=== PATIENT | male | born 1975 | race Two or more races ===

== ENCOUNTER 2024-10-02 14:00 | Outpatient (RCR) | payer MEDICAID, SELFPAY ==
--- NOTE | 2024-09-25 14:30 | PT.ODAYNRPT ---
PT Outpatient Daily Note OP Daily Note Outpatient Physical Therapy Treatment Date: 09/25/24 Visit Reasons: Pain in Right shoulder Subjective: Pt reports R knee is hurting and stiff today. Pt shared he was doing some work around the yard today, R UE tremors are worse today. Objective: Please see flow sheet for ther ex list. Assessment: Pt c/o pain with AAROM activities, pt completed within tolerable range. R UE tremors present during todays PT session. Plan: Continue with POC. Length of Time (minutes) of Treatment: 30 Minutes Procedure Charges Therapeutic Exercise 30 minutes: Yes
--- NOTE | 2024-10-02 14:38 | PT.ODAYNRPT ---
PT Outpatient Daily Note OP Daily Note Outpatient Physical Therapy Treatment Date: 10/02/24 Visit Reasons: Pain in Right shoulder Subjective: Pt is sleeping about 4 hrs at a time up from 2 since starting therapy Objective: See F/S for therex Assessment: Some increased tightness after resisted ER with theraband today consistent with RC tendinopathy Plan: Reassess Length of Time (minutes) of Treatment: 30 Minutes Procedure Charges Therapeutic Exercise 30 minutes: Yes
== END 2024-10-19 23:59 | disposition home or self-care (01) ==
LOC: CPTX 14:00
PROVIDERS: PCP Nurse Practitioner Family; Referring Provider Nurse Practitioner Family; Visit Provider Nurse Practitioner Family
DX: M25.511 Pain in right shoulder (principal); I10 Essential (primary) hypertension
CPT/HCPCS: 97110

== ENCOUNTER → 2024-11-28 | Outpatient (CLI) | payer MEDICAID, SELFPAY ==
--- NOTE | 2024-11-28 16:00 | XR_ITS ---
MRI shoulder, right, without contrast. Date and time: November 28, 2024 1631 hours INDICATIONS: Onset right shoulder pain with lifting joint popping and stiffness joint clicking swelling beginning 2 years ago Technique: Multiple axial, sagittal and coronal sections of the shoulder have been obtained. Siemens high-resolution 1.5 Ritu MRI scanner is utilized. Axial fat-suppressed sections, TR 2350, TE 18 T2-weighted coronal fat-saturated images, TR 3500, TE 7100 T1-weighted coronal images, TR 500, TE 15 T2-weighted sagittal fat-saturated images, TR 3500, TE 57 T1-weighted sagittal sections, TR 504, TE 13. Findings: 20 mm full-thickness rotator cuff tear Subscapularis insertion is intact. Subscapularis bursa is not seen. Long head of the biceps is in the bicipital groove. No definite tear of the biceps superior labral anchor is seen. Retraction of the musculotendinous junction of the rotator cuff is evident. Tendinosis pattern is significant. Distance between the acromium and humeral head is 7 mm Atrophy of the supraspinatus muscle is moderate. Atrophy of the infraspinatus muscle is mild. Sagittal sections demonstrate a horizontal acromion. Acromioclavicular joint demonstrates mild osteoarthritis . Osacromiale is not identified. Fraying and irregularity anterior superior posterior labral margins. Bony glenoid fossa on the sagittal sections does not demonstrate osseous defect. Occult fracture or area of avascular necrosis is not seen. Acromioclavicular joint separation is not visible. Defect in the posterolateral margin of the humeral head is not seen Impression: 20 mm full-thickness rotator cuff tear Fraying and irregularity anterior superior posterior labral margins
== END | disposition home or self-care (01) ==
PROVIDERS: PCP Nurse Practitioner Family; Referring Provider Nurse Practitioner Family; Visit Provider Nurse Practitioner Family
DX: M75.101 Unspecified rotator cuff tear or rupture of right shoulder, not specified as traumatic (principal); M25.811 Other specified joint disorders, right shoulder
CPT/HCPCS: 73221

== ENCOUNTER 2024-12-07 22:53 | Emergency (ER) | payer MEDICAID, SELFPAY ==
[2024-12-07 22:54] VITALS: BMI 29.5
[2024-12-07 23:30] VITALS: BP 154/95; PULSE 89; RESP 20; TEMP 36.6; O2SAT 95
--- NOTE | 2024-12-07 23:50 | PD.EDANX ---
ED Anxiety RME/HPI General Chief Complaint: Anxiety Stated Complaint: ANXIOUS Time Seen by Provider: 12/07/24 22:58 Arrival date/time: 12/07/24 22:53 49 year old male present to emergency room with c/o of anxiety attack today. pt report pcp start on paxil recent and report sx has not improved. pt would like to continue taking hydroxyzine that was prescribed at [facility] for his anxiety/panic attacks. SEVERITY: Symptoms are described as being severe with limitations on activities of daily living CONTEXT: The patient is unable to identify any inciting events. DURATION/TIMING: The symptoms started approximately [one day] ago and have been constant since and have been progressive getting worse. ASSOCIATED SYMPTOMS: The patient is unable to identify any other associated symptoms. MODIFYING FACTORS: The patient is unable to identify any alleviating or aggravating symptoms. PERTINENT ROS: no fevers, no cough, no pleuritic pain, , no chest pain/shortness of breath no nausea,vomiting, diarrhea, no dizziness/headache no rash no loc/syncope episode denies si, hallucination or homicidal thoughts. REVIEW OF SYSTEMS: See History of Present Illness - with the exception of those mentioned in the history of present illness, all other systems reviewed and reported as negative GENERAL: In general the patient is awake, interactive, in an emergency department gurney. HEAD/EYES/EARS/NOSE/THROAT: normo-cephalic, atraumatic, mucus membranes are moist, anicteric, palpebral conjunctiva is pink, trachea is midline. CARDIOVASCULAR: regular rate and regular rhythm, no murmurs, heart sounds are not distant, strong pulses in all four extremities that are equal and symmetric bilateral upper and lower extremities, normal capillary refill. CHEST/PULMONARY: normal chest rise and fall, good air movement, clear to auscultation bilaterally, normal inspiratory to expiratory ratios without evidence of respiratory distress. NECK: No midline/Paraspinal tenderness, no step off ROM/Strenght intact No Kernig and bruzinski sign. No trauma ABDOMEN: soft, not tender, no masses appreciated BACK: normal range of motion without pain. NEUROLOGICAL: cranio-facial features are symmetric, moves all four extremities equally without obvious limitations or weakness. EXTREMITY: no tenderness to palpation over the long bones or large joints of the bilateral upper and lower extremities, no joint swelling, no joint erythema, no signs of trauma, no unilateral leg swelling and no peripheral edema. SKIN: warm, dry, well-perfused, no jaundice, no rash, no telangiectasias or petechia. PSYCH: calm, cooperative, no evidence of psychosis or agitation Related Data Home Medications ?Medication ?Instructions ?Recorded ?Confirmed carbidopa 10 mg-levodopa 100 mg 1 tab PO QDAY 04/07/24 04/07/24 tablet clonazepam 0.5 mg tablet 0.5 mg PO BID 04/07/24 04/07/24 cyanocobalamin (vitamin B-12) 1,000 mcg PO QDAY 04/07/24 04/07/24 1,000 mcg tablet lisinopril 30 mg tablet 30 mg PO QDAY 04/07/24 04/07/24 pyridoxine (vitamin B6) 50 mg 50 mg PO QDAY 04/07/24 04/07/24 tablet Previous Rx's ?Medication ?Instructions ?Recorded tamsulosin 0.4 mg capsule (Flomax) 0.4 mg PO QDAY #30 caps 04/07/24 hydroxyzine HCl 50 mg tablet 50 mg PO Q6H 30 days #60 tabs 12/07/24 Allergies Allergy/AdvReac Type Severity Reaction Status Date / Time Penicillins Allergy Severe Rash Verified 12/07/24 22:53 Course Course Course Narrative: This patient presents with symptoms consistent with acute anxiety reaction / panic attack. Low suspicion for acute cardiopulmonary process including ACS, PE, or thoracic aortic dissection. Denies any ingestions or any other medical complaints. No evidence of alcohol withdrawal symptoms. Given history and physical presentation not consistent with overt toxidrome, ingestion. Presentation not consistent with a medical emergency at this time. No acute indication for psychiatric consultation (without SI/HI, AH/VH). Cautious return precautions discussed with full understanding. Quality Measures none Vital Signs Vital signs: Vital Signs Temperature 97.9 F 12/07/24 23:30 Pulse Rate 89 12/07/24 23:30 Respiratory Rate 20 12/07/24 23:30 Blood Pressure 154/95 H 12/07/24 23:30 Pulse Oximetry (%) 95 12/07/24 23:30 Oxygen Delivery Method Room Air 12/07/24 23:30 Anxiety Patient data External records reviewed:: None Clinical information provided by:: patient Social determinants that could affect healthcare access:: mental health Patient has the following chronic illnesses:: none How is presenting disease/condition affected by chronic disease/condition?: uneffected by Evaluation data The following diagnostics were reviewed and interpreted by me:: other (specify) (none ) Lab and/or radiology exams considered but not ordered:: n/a Interpretation Summary: n/a Medications / Prescriptions Medications or Prescriptions considered but not ordered:: n/a Medication administrations:: n/a Consultations Consultation(s) initiated? (list below): No Diagnosis Most likely diagnosis given after review of the tests above:: anxiety Admission Indicated Admission indicated?: not indicated Admission Request Was there a request for admission?: No Disposition Plan Disposition Plan: Discharge Discharge Attestation Discharge Attestation: The patient and all family members were given an opportunity to ask questions and understood the discharge instructions. Discharge instructions specifically effects, indications for sooner follow up or return to the emergency department, and the expected course of current diagnosis. Patient condition: Stable Discharge Plan Plan Patient Disposition: HOME (Self Care) Health Concerns: Follow with PMD as directed Return to ED if sx worsen Prescriptions/Referrals Prescriptions/Med Rec: New hydroxyzine HCl 50 mg tablet 50 mg PO Q6H 30 Days Qty: 60 0RF No Action clonazepam 0.5 mg tablet 0.5 mg PO BID Patient Comments: take 1 tablet by mouth twice a day if needed for PANIC ATTACKS cyanocobalamin (vitamin B-12) 1,000 mcg tablet 1,000 mcg PO QDAY Patient Comments: take 1 tablet by mouth once daily carbidopa-levodopa 10-100 mg tablet 1 tab PO QDAY Patient Comments: take 1 tablet by mouth three times a day lisinopril 30 mg tablet 30 mg PO QDAY Patient Comments: take 1 tablet by mouth once daily pyridoxine (vitamin B6) 50 mg tablet 50 mg PO QDAY Patient Comments: take 1 tablet by mouth once daily tamsulosin [Flomax] 0.4 mg capsule 0.4 mg PO QDAY Qty: 30 0RF Problem List Clinical Impression: Acute anxiety Patient/Caregiver Discharge Instructions Education Materials: ED Anxiety Reaction Print Language: Hebrew Stand Alone Forms: [employer]da Award Info., Patient Portal Info Letter
[2024-12-08 00:02] VITALS: RESP 18
== END 2024-12-08 00:02 | disposition home or self-care (01) ==
LOC: SERX 12-08 00:17
PROVIDERS: Emergency Provider Emergency Medicine; PCP Nurse Practitioner Family
DX: F41.9 Anxiety disorder, unspecified (principal)
CPT/HCPCS: 99281

== ENCOUNTER → 2025-05-08 | Outpatient (CLI) | payer MEDICAID, SELFPAY ==
--- NOTE | 2025-05-08 10:20 | EKG_ITS ---
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
== END | disposition home or self-care (01) ==
PROVIDERS: PCP Nurse Practitioner Family; Referring Provider Nurse Practitioner Family; Visit Provider Nurse Practitioner Family
DX: Z01.818 Encounter for other preprocedural examination (principal)
CPT/HCPCS: 93005

== ENCOUNTER 2025-08-01 10:30 | Day surgery (SDC) | payer MEDICAID, SELFPAY ==
[2025-07-31 10:18] VITALS: BMI 32.5
[2025-07-31 11:43] LABS: Basophils # (Auto) 0.0 Thou/mm3 (0.0-0.2); Basophils % (Auto) 1 % (0-2.5); Eosinophils # (Auto) 0.0 Thou/mm3 (0.0-0.5); Eosinophils % (Auto) 0 % (0-10); Hematocrit 45.4 % (41.0-53.0); Hemoglobin 15.2 g/dL (13.5-16.0); Immature Granulocytes Auto 0.01 Thou/mm3 (0.00-0.00); Lymphocytes # (Auto) 1.2 Thou/mm3 (1.0-4.8); Lymphocytes % (Auto) 24 % (10-50); Mean Corpuscular HGB Conc 33.5 g/dl (31.0-37.0); Mean Corpuscular Hemoglobin 30.3 pg (25.0-35.0); Mean Corpuscular Volume 90 fL (80-100); Monocytes # (Auto) 0.3 Thou/mm3 (0.0-0.8); Monocytes % (Auto) 6 % (0-12); Neutrophils # (Auto) 3.4 Thou/mm3 (1.8-7.7); Neutrophils % (Auto) 69 % (37-80); Nucleated Red Blood Cell # 0.00 Thou/mm3 (0.00-0.00); Nucleated Red Blood Cell % 0 /100 WBC (0); Platelet Count 191 Thou/mm3 (140-440); RDW Standard Deviation 43.9 fL (35.1-43.9); Red Blood Count 5.02 Miln/mm3 (4.50-5.90); White Blood Count 4.9 Thou/mm3 (3.8-10.6)
[2025-07-31 12:01] LABS: INR 1.1 (0.9-1.3); Partial Thromboplastin Time 26.3 Seconds (22.0-36.0); Prothrombin Time 12.1 Seconds (9.0-12.2)
[2025-07-31 12:04] LABS: Anion Gap 9 (7-16); BUN/Creatinine Ratio 11 Ratio (12-20); Blood Urea Nitrogen 9 mg/dL (9-23); Calcium 10.8 mg/dL (8.3-10.6); Carbon Dioxide 27.9 mMol/L (20.0-31.0); Chloride 103 mMol/L (98-107); Creatinine (Component) 0.8 mg/dL (0.6-1.3); Estimated Creatinine Clearance 143.2 mL/min (>60); Glucose 96 mg/dL (74-106); Osmolality,Calculated 278 (275-295); Potassium 4.5 mMol/L (3.4-5.1); Sodium 140 mMol/L (136-145); eGFR > 60 See Note
--- NOTE | 2025-07-31 13:15 | ESHP_ITS ---
RE: GRACE ARGUETA : 1975 DATE OF ADMISSION: 07/31/2025 The patient came to my office on 07/31/2025 for detailed preop history and physical examination and expressed her present complaint. HISTORY OF PRESENT COMPLAINT: The patient presented to me earlier with history of pain in the right shoulder joint. This is going on for a long period of time. Last few months are extremely painful. Range of motion is restricted. The patient is unable to sleep. Quality of life and activities of daily living is affected. The patient graded intensity of the pain to be 8-9/10. Conservative treatment did not help him. The MRI scan of the shoulder revealed complete tear of the rotator cuff with tendinitis and DJD at AC joint. PAST MEDICAL HISTORY: No history of diabetes mellitus, high blood pressure, asthma, seizure, chest pain, or myocardial infarction or bleeding disorder. PAST SURGICAL HISTORY: Nil. DRUG HISTORY: Patient takes 1. Vitamin D3. 2. Lisinopril. 3. Acetaminophen. ALLERGIES: TO PENICILLIN. FAMILY HISTORY AND SOCIAL HISTORY: The patient denies smoking, drinking and is not working. PHYSICAL EXAMINATION: GENERAL: Rather normal built person. VITAL SIGNS: Pulse 76 per minute, blood pressure 139/93. NECK: Soft, supple. No mass felt. Trachea is centrally placed. CARDIOVASCULAR SYSTEM: First and second heart sounds normal. No murmur heard. RESPIRATORY SYSTEM: Bilateral vesicular breath sounds. CHEST: Clear. ABDOMEN: Soft. No mass felt. Bowel sounds present. EXTREMITIES: Right shoulder examination reveals no wasting. There is 2+ tenderness at AC joint and also at subacromial and subdeltoid space. Active range of motion is 0 to 80 degrees of abduction and 0 to 90 degrees of forward flexion. Internal rotation is severely restricted. Leida test, impingement test and drop arm tests are positive. DIAGNOSTIC DATA: MRI scan of the right shoulder revealed 20 mm full-thickness tear of the rotator cuff. There is DJD at AC joint. ASSESSMENT AND PLAN: Since the patient is symptomatic and there is a torn rotator cuff, therefore, right rotator cuff repair with a Parvin procedure was discussed and advised. Risks of anesthesia was explained and that includes, but not limited to reaction to anesthetic agents, cardiac arrest, or rarely it might be fatal. Risk with operation includes infection and if that happens, the patient may need further surgical procedure. Other risks include delayed healing, wound dehiscence, etc. Indeed, physical therapy is a very important component for a good outcome of the surgical procedure. No guarantee is given regarding outcome of the procedure and/or relief of symptoms and the patient is fully aware of that. Accordingly, surgery is booked for 08/01/2025. Appropriate lab work was done. DT: 12:58:49 TT: 13:14:00 Ref: [id number] - TID: [id number]
--- NOTE | 2025-07-31 14:17 | SUR.PREOP ---
Pt notified to come in at 1030 tomorrow for surgery.
[2025-08-01] VITALS (9 sets, daily range): BP systolic 134–152; BP diastolic 84–94; PULSE 81–105; RESP 12–16; TEMP 36.4–36.8; O2SAT 94–99; BMI 32.4
[2025-08-01] MEDS: RINGERS LACTATED 1000 ML 1,000 ML 20 ML IV (11:18)
--- NOTE | 2025-08-01 15:04 | PD.SUROPNT ---
Date of Procedure 08/01/25 Pre Op Diagnosis 1. Right rotator cuff tear 2 right shoulder impingement syndrome Post Op Diagnosis Same Procedure 1. Excision lateral end of the clavicle 2. Excision coracoacromial ligament 3. Acromioplasty 4 for repair of rotator cuff 5 manipulation under anesthesia Findings Patient significant DJD at AC joint. The inferior spurs were present. The anterior osteophytes were abutting over the rotator cuff. Same was the scenario with the lateral osteophytes coming out from the acromial process. The rotator cuff muscle was partially torn. Procedure Description The patient was given general endotracheal anesthesia. Shoulder block was also given. Once satisfactory anesthesia was achieved patient was put in about 45?? sitting position with sandbag underneath the shoulder blade. The part was thoroughly prepped and draped. A skin incision was made at the AC joint extending proximally towards the neck for a half inches and distally towards the arm for about couple of inches. Deeper dissection was carried out. Bleeding vessels were electrocoagulated as and when encountered. The soft tissue was reflected. Following that AC joint was exposed and AC joint was exposed. The deltoid muscle was reflected from the anterior and lateral aspect of the acromial process. It showed 2 to 3 mm anterior osteophytes and 2 mm lateral osteophytes. Following that a periosteal elevator was placed underneath the lateral end of the clavicle and lateral 3-4 mm was excised. The coracoacromial ligament was removed. Following that the 2 mm of anterior aspect of acromial process and 2 mm of lateral acromial process along with osteophytes were removed with the help of saw. With the help of curved osteotome the undersurface of the Acromial processes was chiseled out. That made more room between the superior surface of the head of the humerus and undersurface of the acromial process. Following that the rotator cuff was inspected. It revealed an oval tear, however most of the fibers were attached to the greater tuberosity. Wound was irrigated with antibiotic solution every 4-5 minutes. The left shoulder was manipulated at this time. The rotator cuff tear was repaired with 2-0 Vicryl. 2 drill holes were made on the acromial process and deltoid muscle was stitched back to it. Some reinforcement sutures were placed. The subcutaneous tissue was then closed with the help of 2-0 Vicryl. The skin was closed with 4-0 Monocryl. After cleaning Prineo tape was applied. After cleaning the wound with hydrogel proximal solution and sterile dressing was applied. Small Patient was taken to the recovery room in good condition. Estimated blood loss 20 mL. Prognosis in this case is good. Righ piece oft Anesthesia GETA and other Pathology / specimen None Estimated Blood Loss 20 Surgeon Ez Adan MD Surgical Staff Operation Date: 08/01/25 12:45 Case Staff Anesthesiologist: Derrek Lopez RNbuilding rental manager: Martha Watkins
--- NOTE | 2025-08-01 16:24 | SUR.PHASEI ---
1521: Pt received in [facility] via gurney. Report from Judah MONTEJO and Syed VIRAMONTES. Pt moving about on gurney. Resp even, unlabored. VS stable. Dressing to right shoulder dry, clean, intact. No c/o pain. 1545: Pt more awake, but confused. Resp even, unlabored. VS stable. Dressing remains dry, clean, intact. Denies pain. Pt states right arm feels heavy. Was explained he had a nerve block.
--- NOTE | 2025-08-01 16:28 | SUR.PHASEII ---
1615: Pt more awake, coherent. Resp even, unlabored. VS stable. Denies pain. Dressing remains dry, clean, intact. at bedside. 1625: Pt sitting up tolerating po fluids with no difficulty swallowing and no n/v.
--- NOTE | 2025-08-01 17:42 | SUR.PHASEII ---
1630: Pt stated he felt queasy but didn't feel he was to the point of having emesis. 1640: Pt fully awake, oriented x3. Stated nausea has subsided. VS stable. Dressing remains dry, clean, intact. Pt has movement to right arm/fingers, but continues to have complaints of arm feeling heavy. Was repeatedly instructed on nerve block to right arm he received for the surgery. Stated he understood. Requested to just lay down on gurney for a few minutes and was not ready to go home. 1715: Pt stated he felt he was ready to go home and wished to use the restroom. Pt dressed and assisted to restroom. Ambulation steady. Pt and stated understanding of discharge instructions. Pt discharged from [facility] in stable condition.
--- NOTE | 2025-08-08 12:25 | PD.ANESPROG ---
Documentation for date of: 08/08/25 POST ANESTHESIA NOTE: Patient had general LMA anesthesia and R interscalene nerve block for R rotator cuff surgery on 08/01/25. I just called and spoke with him on the phone and he denied any problems from anesthesia. He reported that the nerve block wore off sooner than expected (24 hrs) and I educated him that every patient is different and in some patients it can wear off sooner like in 15 hrs. He had no further questions for me. Derrek Lopez MD Anesthesia Progress Note Progress Note Most recent Vital Signs: Last Vital Signs Temp 97.5 F 08/01/25 15:21 Pulse 81 08/01/25 16:20 Resp 14 08/01/25 16:20 BP 147/92 H 08/01/25 16:20 Pulse Ox 96 08/01/25 16:20 O2 Flow Rate 2 08/01/25 16:00
== END 2025-08-01 17:30 | disposition home or self-care (01) ==
PROVIDERS: PCP Nurse Practitioner Family; Referring Provider Orthopaedic Surgery; Visit Provider Orthopaedic Surgery
PROC: (CPT 23412; principal; 2025-08-01 12:30)
DX: M75.101 Unspecified rotator cuff tear or rupture of right shoulder, not specified as traumatic (principal); M75.41 Impingement syndrome of right shoulder; M19.011 Primary osteoarthritis, right shoulder
CPT/HCPCS: 23412; 23120; 36415; 80048; 85025; 85610; 85730; A4217; A4649; J0690; J1100; J1580; J2250; J2371; J2405; J2704; J2795; J3010; J3490; J7120